=== PATIENT | male | born 1930 | race Caucasian/White ===

== ENCOUNTER → 2016-08-21 | Outpatient (CLI) | payer MEDICARE, BC ==
[2016-05-24 14:00] VITALS: BP 163/93
[~2016-08-21] MED LIST: AMIO200T2 PO; AMLO2.5T PO; ASPI325T11 PO; FERR325T58 PO; HYDR12.58 PO; LOSA25TA4 PO; PANT40TA3 PO; SULF1TAB24 PO
[2016-08-21 15:01] LABS: ALBUMIN 3.8 g/dL (3.4-5.0); DIRECT BILIRUBIN 0.1 mg/dL (0.0-0.2); TOTAL BILIRUBIN 0.3 mg/dL (0.2-1.0); TOTAL PROTEIN 7.5 g/dL (6.4-8.2)
== END | disposition home or self-care (01) ==
LOC: LAB 14:20
PROVIDERS: ATTEND Internal Medicine Cardiovascular Disease
DX: I48.0 Paroxysmal atrial fibrillation (principal)
CPT/HCPCS: 36415; 80076; 84443

== ENCOUNTER → 2016-08-27 | Outpatient (CLI) | payer MEDICARE, BC ==
[2016-05-24 14:00] VITALS: BP 163/93
--- NOTE | 2016-08-29 11:14 | CARD ---
APPROVED REPORT EXAM: Two-dimensional and M-mode echocardiogram with Doppler and color Doppler. Other Information Quality : GoodHR: 63bpm Rhythm : NSR INDICATION Arrhythmia Sick sinus syndrome Surgery/Intervention Pacemaker: 2D DIMENSIONS RVDd2.7 (2.9-3.5cm)Left Atrium(2D)3.4 (1.6-4.0cm) IVSd1.0 (0.7-1.1cm)Aortic Root(2D)3.4 (2.0-3.7cm) LVDd5.4 (3.9-5.9cm)LVOT Diameter2.4 (1.8-2.4cm) PWd1.0 (0.7-1.1cm)LVDs3.2 (2.5-4.0cm) FS (%) 41.4 %SV101.2 ml Aortic Valve AoV Peak Sanya.138.9cm/sAoV VTI25.7cm AO Peak GR.7.7mmHgLVOT Peak Sanya.95.8cm/s AO Mean GR.4mmHgAVA (VMAX)3.11cm2 Mitral Valve MV E Zgtyoicn83.3cm/sMV E Peak Gr.4mmHg MV DECEL [id number] A Kgfqpeob104.4cm/s MV E Mean Gr.1mmHgE/A Ratio0.6 MV A [id number] Pulmonary Valve PV Peak Drdmhwnk27.9cm/s Tricuspid Valve TR P. Usnwmddc476jg/sTR Peak Gr.24mmHg Pulmonary Vein S1 Mnptbtrk03.9cm/sD2 Tfhikuvy32.0cm/s PVa qjvnvjtt33acdm LEFT VENTRICLE The left ventricle is normal size. There is normal left ventricular wall thickness. The left ventricu lar systolic function is normal and the ejection fraction is within normal range. The Ejection Fracti on is 60-65%. Transmitral Doppler flow pattern is Grade I-abnormal relaxation pattern. RIGHT VENTRICLE The right ventricle is normal size. There is normal right ventricular wall thickness. The right ventr icular systolic function is normal. A probable pacemaker lead is noted in the right ventricle. ATRIA The left atrium size is normal. The right atrium size is normal. The interatrial septum is intact wit h no evidence for an atrial septal defect or patent foramen ovale as noted on 2-D or Doppler imaging. AORTIC VALVE The aortic valve is mildly sclerotic. The aortic valve is trileaflet. Doppler and Color Flow revealed trace to mild aortic regurgitation. There is no significant aortic valvular stenosis. MITRAL VALVE Mitral annular calcification is mild. The mitral valve leaflets are thickened. There is no evidence o f mitral valve prolapse. There is no mitral valve stenosis. Doppler and Color Flow revealed trace lety ral valve regurgitation. TRICUSPID VALVE Doppler and Color Flow revealed mild tricuspid regurgitation. The pulmonary artery systolic pressure is estimated at 29 mmHg. PULMONIC VALVE The pulmonic valve is not well visualized. Doppler and Color Flow revealed mild pulmonic valvular reg urgitation. There is no pulmonic valvular stenosis. GREAT VESSELS The aortic root is normal in size. The ascending aorta is mild to moderately dilated. The pulmonary a rtery is normal. The IVC was not visualized due to a suboptimal subcostal window. PERICARDIAL EFFUSION There is no evidence of significant pericardial effusion. Critical Notification Critical Value: No <Conclusion> The left ventricle is normal size. The left ventricular systolic function is normal and the ejection fraction is within normal range. The Ejection Fraction is 60-65%. There is no significant aortic valvular stenosis. Doppler and Color Flow revealed trace to mild aortic regurgitation. Doppler and Color Flow revealed trace mitral valve regurgitation. Doppler and Color Flow revealed mild tricuspid regurgitation. The pulmonary artery systolic pressure is estimated at 29 mmHg. The ascending aorta is mild to moderately dilated.
== END | disposition home or self-care (01) ==
LOC: ECHO 08:49
PROVIDERS: ATTEND Internal Medicine Cardiovascular Disease
DX: I49.5 Sick sinus syndrome (principal)
CPT/HCPCS: 93306

== ENCOUNTER 2016-11-04 20:16 | Inpatient (IN) | payer MEDICARE, BC ==
[~2016-11-04] VITALS: Ht 170.2 cm; Wt 67.4 kg
[~2016-11-04 20:16] MED LIST changes: +CITA20TA5 PO; +MIDO5TAB PO
[2016-11-04] MEDS ORDERED: IV NORMAL SALINE 1000ML BAG 1,000 ML IV ONE ×2 (20:45→22:45)
[2016-11-04 20:56] LABS: BASO % 0 % (0-3); EOS % 0 % (0-3); HEMATOCRIT 47.2 % (39.0-53.0); HEMOGLOBIN 16.2 g/dL (13.0-17.5); LYMPH # 0.6 x10^3/uL (1.0-4.8); LYMPH % 3 % (24-48); MEAN CORPUSCULAR HEMOGLOBIN 33 pg (25-35); MEAN CORPUSCULAR HGB CONC 34 g/dL (31-37); MEAN CORPUSCULAR VOLUME 95 fL (79-100); MONO % 8 % (0-9); NEUT % 88 % (31-73); PLATELET COUNT 341 x10^3/uL (140-400); RED BLOOD COUNT 4.95 x10^6/uL (4.30-5.70); RED CELL DISTRIBUTION WIDTH 13.2 % (11.5-14.5)
[2016-11-04 21:06] LABS: INR 1.2 (0.8-1.1); PROTHROMBIN TIME PATIENT 14.4 SEC (11.7-14.0)
[2016-11-04 21:10] LABS: CALCIUM 10.5 mg/dL (8.5-10.1); POTASSIUM 4.3 mmol/L (3.5-5.1)
[2016-11-04 21:14] LABS: PLT ESTIMATE ADEQUATE (ADEQUATE); TOXIC GRANULATION SLIGHT
[2016-11-04 21:18] LABS: ALBUMIN 3.7 g/dL (3.4-5.0); ALBUMIN/GLOBULIN RATIO 0.7 (1.0-1.7); MAGNESIUM 2.5 mg/dL (1.8-2.4); TOTAL BILIRUBIN 0.9 mg/dL (0.2-1.0); TOTAL PROTEIN 8.7 g/dL (6.4-8.2)
--- NOTE | 2016-11-04 21:19 | RAD ---
CT HEAD WO CONTRAST History: Altered mental status Comparison: October 09, 2016 Technique: Noncontrast [address] images were acquired from the skull base to the vertex. Exposure: One or more of the following individualized dose reduction techniques were utilized for this examination: 1. Automated exposure control 2. Adjustment of the mA and/or kV according to patient size 3. Use of iterative reconstruction technique. Findings: There is some motion degradation. There is prominent hyperdense intraventricular hemorrhage concentrated in the posterior left lateral ventricle and left occipital horn and atrium. Hemorrhage appears to track along the ependymal surface more superiorly and there may be some involvement of the adjacent left parietal parenchyma. There is adjacent low density about the left lateral ventricle likely due to edema. The third ventricle is similar in size. There is again mild lateral ventriculomegaly, size of left lateral ventricle fairly similar. There is no midline shift. Gan-white differentiation of the major vascular territories is grossly preserved. Visualized paranasal sinuses are aerated. Visualized mastoid air cells are grossly reported. No acute calvarial abnormality is identified. Impression: 1. There is prominent acute intraventricular hemorrhage concentrated in the left lateral ventricle, appears to track along the left ependymal surface and there may be some involvement of the adjacent left parietal parenchyma. FOR INTERNAL CODING PURPOSES Critical result: Findings discussed with Dr. Barlow at 11/04/2016 9:10 PM. RESULT CODE: (C) Electronically signed by: Ian Omer MD (11/04/2016 9:15 PM)
[2016-11-04 21:24] LABS: CKMB MASS 5.2 ng/mL (0.0-3.6)
[2016-11-04 21:34] LABS: BILIRUBIN,URINE NEGATIVE (NEG); GLUCOSE,URINE 100 mg/dL (NEG); NITRITE,URINE NEGATIVE (NEG); PROTEIN,URINE 30 mg/dL (NEG-TRACE); UROBILINOGEN,URINE 0.2 mg/dL (0.2 mg/dL)
--- NOTE | 2016-11-04 21:35 | PHYS DOC ---
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 Patient was brought to the emergency department by EMS from the [facility] after nursing staff states the patient was found to have left-sided facial droop and left-sided weakness at 1800. The patient was being treated at their facility for rehabilitation care after having a recent admission to the hospital for treatment of hyponatremia and hyperkalemia. Family arrived to the emergency department shortly after patient's arrival. They state that the patient seemed to display left-sided facial droop and altered mental status starting at 1200 today which is in conflict with the half-way report. They state that the patient seemed to improve when he would be spoken to and would arouse easier upon onset of symptoms, however patient has had increasing lethargy at this time. The patient is able to answer a few questions at this time. Patient denies any localizing complaints but does state that he does not feel well at this time. Patient denies any pain. Patient does state he has generalized weakness but denies any lateralizing symptoms. Review of Systems Review of Systems Constitutional: Generalized weakness, fatigue [] Eyes: Denies change in visual acuity, redness, or eye pain [] HENT: Denies nasal congestion or sore throat [] Respiratory: Denies cough or shortness of breath [] Cardiovascular: Denies chest pain or edema [] GI: Denies abdominal pain, nausea, vomiting, bloody stools or diarrhea [] : Denies dysuria or hematuria [] Musculoskeletal: Denies back pain or joint pain [] Integument: Denies rash or skin lesions [] Neurologic: Denies headache, focal weakness or sensory changes [] Current Medications Current Medications Current Medications Medications (Trade) Dose Ordered Sig/Carrol Start Time Stop Time Status Last Admin Dose Admin Nicardipine HCl 50 mg/Sodium Chloride 270 ml @ 0 mls/hr CONT PRN 11/04/16 22:00 11/04/16 21:48 5 MLS/HR Sodium Chloride 1,000 ml @ 100 mls/hr 1X ONCE 11/04/16 20:45 11/05/16 06:44 11/04/16 21:09 100 MLS/HR Allergies Allergies Allergies Coded Allergies Type Severity Reaction Last Updated Verified aspirin Allergy Intermediate BUFFERIN ONLY 01/04/15 Yes magnesium Allergy Intermediate bufferin aspirin 01/04/15 Yes Physical Exam Physical Exam Constitutional: Lethargic, afebrile, responds to voice and commands. [] HENT: Normocephalic, atraumatic, bilateral external ears normal, oropharynx moist, no oral exudates, nose normal. [] Eyes: PERRLA, EOMI, conjunctiva normal, no discharge. [] Neck: Normal range of motion, no tenderness, supple, no stridor. [] Cardiovascular:Heart rate regular rhythm, no murmur [] Lungs & Thorax: Bilateral breath sounds clear to auscultation [] Abdomen: Bowel sounds normal, soft, no tenderness, no masses, no pulsatile masses. [] Skin: Warm, dry, no erythema, no rash. [] Back: No tenderness, no CVA tenderness. [] Extremities: No tenderness, no cyanosis, no clubbing, ROM intact, no edema. 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 [] Current Patient Data Vital Signs Vital Signs Date Time Temp Pulse Resp B/P (MAP) Pulse Ox O2 Delivery O2 Flow Rate FiO2 11/04/16 21:37 82 182/105 (130) 93 Nasal Cannula 3.0 11/04/16 20:16 98.2 16 98.2 Lab Values Laboratory Tests Test 11/04/16 20:29 11/04/16 20:30 11/04/16 21:20 Glucose (Fingerstick) 143 mg/dL (70-99) H White Blood Count 19.0 x10^3/uL (4.0-11.0) H Red Blood Count 4.95 x10^6/uL (4.30-5.70) Hemoglobin 16.2 g/dL (13.0-17.5) Hematocrit 47.2 % (39.0-53.0) Mean Corpuscular Volume 95 fL (79-100) Mean Corpuscular Hemoglobin 33 pg (25-35) Mean Corpuscular Hemoglobin Concent 34 g/dL (31-37) Red Cell Distribution Width 13.2 % (11.5-14.5) Platelet Count 341 x10^3/uL (140-400) Neutrophils (%) (Auto) 88 % (31-73) H Lymphocytes (%) (Auto) 3 % (24-48) L Monocytes (%) (Auto) 8 % (0-9) Eosinophils (%) (Auto) 0 % (0-3) Basophils (%) (Auto) 0 % (0-3) Neutrophils # (Auto) 16.8 x10^3uL (1.8-7.7) H Lymphocytes # (Auto) 0.6 x10^3/uL (1.0-4.8) L Monocytes # (Auto) 1.6 x10^3/uL (0.0-1.1) H Eosinophils # (Auto) 0.0 x10^3/uL (0.0-0.7) Basophils # (Auto) 0.0 x10^3/uL (0.0-0.2) Segmented Neutrophils % 86 % (35-66) H Band Neutrophils % 2 % (0-9) Lymphocytes % 5 % (24-48) L Monocytes % 7 % (0-10) Toxic Granulation Slight Platelet Estimate Adequate (ADEQUATE) Prothrombin Time 14.4 SEC (11.7-14.0) H Prothrombin Time INR 1.2 (0.8-1.1) H PTT 30 SEC (24-38) Sodium Level 141 mmol/L (136-145) Potassium Level 4.3 mmol/L (3.5-5.1) Chloride Level 98 mmol/L (98-107) Carbon Dioxide Level 34 mmol/L (21-32) H Anion Gap 9 (6-14) Blood Urea Nitrogen 71 mg/dL (8-26) H Creatinine 2.0 mg/dL (0.7-1.3) H Estimated GFR (Cockcroft-Gault) 32.0 BUN/Creatinine Ratio 36 (6-20) H Glucose Level 113 mg/dL (70-99) H Calcium Level 10.5 mg/dL (8.5-10.1) H Magnesium Level 2.5 mg/dL (1.8-2.4) H Total Bilirubin 0.9 mg/dL (0.2-1.0) Aspartate Amino Transferase (AST) 38 U/L (15-37) H Alanine Aminotransferase (ALT) 65 U/L (16-63) H Alkaline Phosphatase 106 U/L (46-116) Ammonia 11 mcmol/L (11-34) Creatine Kinase 287 U/L (39-308) Creatine Kinase MB (Mass) 5.2 ng/mL (0.0-3.6) H Creatine Kinase MB Relative Index 1.8 % (0-4) Troponin I Quantitative 0.063 ng/mL (0.000-0.055) KH-Wty-N-Type Natriuretic Peptide 1096 pg/mL (0-449) H Total Protein 8.7 g/dL (6.4-8.2) H Albumin 3.7 g/dL (3.4-5.0) Albumin/Globulin Ratio 0.7 (1.0-1.7) L Urine Collection Type Unknown Urine Color Yellow Urine Clarity Clear Urine pH 6.0 Urine Specific [place] 1.020 Urine Protein 30 mg/dL (NEG-TRACE) Urine Glucose (UA) 100 mg/dL (NEG) Urine Ketones (Stick) Negative mg/dL (NEG) Urine Blood Trace (NEG) Urine Nitrite Negative (NEG) Urine Bilirubin Negative (NEG) Urine Urobilinogen Dipstick 0.2 mg/dL (0.2 mg/dL) Urine Leukocyte Esterase Negative (NEG) Urine RBC Rare /HPF (0-2) Urine WBC 0 /HPF (0-4) Urine Transitional Epithelial Cells Occ /LPF Urine Bacteria 0 /HPF (0-FEW) Urine Hyaline Casts Few /HPF Urine Mucus Slight /LPF Urine Opiates Screen Neg (NEG) Urine Methadone Screen Neg (NEG) Urine Barbiturates Neg (NEG) Urine Phencyclidine Screen Neg (NEG) Urine Amphetamine/Methamphetamine Neg (NEG) Urine Benzodiazepines Screen Neg (NEG) Urine Cocaine Screen Neg (NEG) Urine Cannabinoids Screen Neg (NEG) Urine Ethyl Alcohol Neg (NEG) Laboratory Tests 11/04/16 20:30 Laboratory Tests 11/04/16 20:30 EKG EKG Interpreted by me: Heart rate 84, sinus rhythm, left axis deviation, no acute ST /T-wave abnormalities present [] Radiology/Procedures Radiology/Procedures [facility] [address] [place] [address] IMAGING REPORT Signed PATIENT: LANI PEDROZA ACCOUNT: [id number] : 1930 LOCATION: ER AGE: 85 SEX: M EXAM STATUS: REG ER ORD. PHYSICIAN: JOHANNE KELLER MD REASON: altered mental status PROCEDURE: CT HEAD WO CONTRAST CT HEAD WO CONTRAST History: Altered mental status Comparison: October 09, 2016 Technique: Noncontrast [address] images were acquired from the skull base to the vertex. Exposure: One or more of the following individualized dose reduction techniques were utilized for this examination: 1. Automated exposure control 2. Adjustment of the mA and/or kV according to patient size 3. Use of iterative reconstruction technique. Findings: There is some motion degradation. There is prominent hyperdense intraventricular hemorrhage concentrated in the posterior left lateral ventricle and left occipital horn and atrium. Hemorrhage appears to track along the ependymal surface more superiorly and there may be some involvement of the adjacent left parietal parenchyma. There is adjacent low density about the left lateral ventricle likely due to edema. The third ventricle is similar in size. There is again mild lateral ventriculomegaly, size of left lateral ventricle fairly similar. There is no midline shift. Gan-white differentiation of the major vascular territories is grossly preserved. Visualized paranasal sinuses are aerated. Visualized mastoid air cells are grossly reported. No acute calvarial abnormality is identified. Impression: 1. There is prominent acute intraventricular hemorrhage concentrated in the left lateral ventricle, appears to track along the left ependymal surface and there may be some involvement of the adjacent left parietal parenchyma. FOR INTERNAL CODING PURPOSES Critical result: Findings discussed with Dr. Keller at 11/04/2016 9:10 PM. RESULT CODE: (C) Electronically signed by: Monica Griffin MD (11/04/2016 9:15 PM) DICTATED and SIGNED BY: MONICA GRIFFIN MD DATE: 11/04/162106 CC: MONICA ABDUL MD; JOHANNE KELLER MD ~ [] Course & Med Decision Making Course & Med Decision Making Pertinent Labs and Imaging studies reviewed. (See chart for details) Patient's initial NIH score was 6 when performed by nursing staff which noted right-sided weakness. On my evaluation, the patient did not display lateralizing symptoms but symmetrically depressed strength. The patient's CT scan revealed evidence of acute intracranial bleeding in the left hemisphere. The radiologist confirmed this at 2109. I consulted neurosurgery and spoke with JULIAN Rosen for Dr. Blackmon, at 2118. After reviewing the CT imaging, Dr. Blackmon called back at 2133. After discussing the case he recommended supportive care with ICU admission and repeat head CT tomorrow morning. Due to elevated blood pressure of 180 to 190s systolic, the patient was initiated on low-dose Cardene therapy. Due to a drop in blood pressure 110 systolic this was discontinued and patient was continued on IV fluids. The patient was admitted to Dr. Abdul. I also spoke with Dr. Akers who accepted care patient in hospital. Patient's family was informed of all findings and plan of care and they're in agreement at this time. Critical care time excluding procedures: 55 minutes Dragon Disclaimer Dragon Disclaimer This electronic medical record was generated, in whole or in part, using a voice recognition dictation system. Departure Departure Impression: Primary Impression: Hemorrhagic cerebrovascular accident (CVA) Additional Impressions: Acute renal failure Elevated troponin Disposition: ADMITTED INPATIENT Admitting Physician: Monica Abdul Condition: CRITICAL Referrals: MONICA ABDUL MD (PCP) Problem Qualifiers Additional Impressions: Acute renal failure Acute renal failure type: unspecified Qualified Codes: N17.9 - Acute kidney failure, unspecified JOHANNE KELLER MD November 04, 2016 21:35
[2016-11-04 21:40] LABS: BACTERIA,URINE 0 /HPF (0-FEW); RBC,URINE RARE /HPF (0-2); WBC,URINE 0 /HPF (0-4)
[2016-11-04 21:41] LABS: BARBITURATES NEG (NEG); BENZODIAZEPINES NEG (NEG); CANNABINOIDS NEG (NEG); COCAINE NEG (NEG); METHADONE NEG (NEG); OPIATES NEG (NEG); PHENCYCLIDINE NEG (NEG)
[2016-11-04] MEDS ORDERED: ONDANSETRON PF 4 MG/2 ML VIAL. IV PRN (23:00)
[2016-11-04] MEDS ORDERED: ACETAMINOPHEN 325 MG TABLET. PO PRN (23:00)
[2016-11-04 23:30] VITALS: BP 158/94
[2016-11-04 23:45] VITALS: BP 128/87
[2016-11-05] VITALS (22 sets, daily range): BP systolic 63–150; BP diastolic 48–104
[2016-11-05] MEDS ORDERED: MAGN2400 PO (00:02)
[2016-11-05] MEDS ORDERED: NA P133E2 RC (00:02)
[2016-11-05] MEDS ORDERED: ALPR0.25 PO (00:02)
[2016-11-05] MEDS ORDERED: POTA20TA4 PO (00:02)
[2016-11-05] MEDS ORDERED: BISA10SU2 RC (00:02)
[2016-11-05] MEDS ORDERED: POLY17PO29 PO (00:02)
[2016-11-05] MEDS ORDERED: SIMV20TA3 PO (00:02)
[2016-11-05] MEDS ORDERED: DEME300T PO (00:02)
[2016-11-05] MEDS ORDERED: ONDA4TAB12 PO (00:02)
--- NOTE | 2016-11-05 03:42 | ACF ---
Admission Forms Criteria STROKE: HEMORRHAGIC Clinical Indications for Admission to Inpatient Care (Place 'X' for any and all applicable criteria): Admission is indicated for ANY ONE of the following(1)(2)(3)(4): [X ]I. Acute hemorrhagic (eg, intracerebral) stroke Extended stay beyond goal length of stay may be needed for(1)(2)(6) [ ]a) Surgical intervention (9) [ ]b) Major deficit [ ]c) Increased intracranial pressure [ ]d) Hydrocephalus [ ]e) Seizures [ ]f) Venous thromboembolism [ ]g) Severe electrolyte abnormality (eg, hypernatremia, hyponatremia) [ ]h) Hospital-acquired infection (eg, urinary tract infection, pneumonia) [ ]i) Comorbidities (heart failure, renal failure) The original [facility] content created by [facility] [employer] has been revised. The portions of the content which have been revised are identified through the use of italic text or in bold, and [facility] has neither reviewed nor approved the modified material. All other unmodified content is copyright [facility]. Please see references footnoted in the original [facility] [employer] edition 2016 Admission Criteria Met?: Yes SIRI REMY November 05, 2016 03:42
[2016-11-05 04:54] LABS: BASO % 0 % (0-3); EOS % 0 % (0-3); HEMATOCRIT 40.4 % (39.0-53.0); HEMOGLOBIN 13.7 g/dL (13.0-17.5); LYMPH # 0.7 x10^3/uL (1.0-4.8); LYMPH % 4 % (24-48); MEAN CORPUSCULAR HEMOGLOBIN 33 pg (25-35); MEAN CORPUSCULAR HGB CONC 34 g/dL (31-37); MEAN CORPUSCULAR VOLUME 96 fL (79-100); MONO % 12 % (0-9); NEUT % 84 % (31-73); PLATELET COUNT 262 x10^3/uL (140-400); RED BLOOD COUNT 4.22 x10^6/uL (4.30-5.70); WHITE BLOOD COUNT 17.2 x10^3/uL (4.0-11.0)
--- NOTE | 2016-11-05 06:17 | EKG ---
[facility] [address] [place] [address] Test Date: 2016-11-04 Test Time: 20:24:06 Pat Name: LANI PEDROZA Department: Room: Gender: M Qual Field Manager: : 1930 Requested By: JOHANNE KELLER Order Number: [id number] Reading MD: Measurements Intervals [place] Rate: 84 P: -19 AK: 174 QRS: -59 QRSD: 126 T: 79 QT: 378 QTc: 450 Interpretive Statements SINUS RHYTHM ABNORMAL LEFT AXIS DEVIATION NON SPECIFIC INTRAVENTRICULAR BLOCK QRS(T) CONTOUR ABNORMALITY CONSISTENT WITH SEPTAL INFARCT PROBABLY OLD RI6.01 Unconfirmed report No previous ECG available for comparison
[2016-11-05 07:01] LABS: CALCIUM 8.8 mg/dL (8.5-10.1); CREATININE 1.2 mg/dL (0.7-1.3); GFR 57.7; POTASSIUM 3.3 mmol/L (3.5-5.1)
[2016-11-05] MEDS: IV NORMAL SALINE 1000ML BAG 1,000 ML IV SCH ×2 (07:37→15:45)
[2016-11-05 07:43] LABS: PHOSPHORUS 4.4 mg/dL (2.6-4.7)
[2016-11-05] MEDS: POTASSIUM CHLORIDE 10MEQ 100 ML IV SCH ×4 (07:43→15:47)
--- NOTE | 2016-11-05 07:48 | RAD ---
Portable chest, 11/04/2016: History: Altered mental status Comparison is made to a study from 10/09/2016. A left-sided transvenous pacemaker remains in place with 2 leads extending into the right heart. The heart is at the upper limits of normal in size. The depth of inspiration is suboptimal. There are moderate bibasilar streaky opacities compatible with atelectasis and/or scarring. The upper lung virgen are clear. There is no evidence of pleural fluid. IMPRESSION: Suboptimal inspiration with moderate bibasilar linear atelectasis and/or scarring.
--- NOTE | 2016-11-05 09:28 | RAD ---
Indication follow-up hemorrhage. Noncontrast images of the head were obtained and are compared to an exam one day earlier. Known left intraventricular hemorrhage persists and appears unchanged. There is a small amount of hemorrhage in the dependent portion of the right lateral ventricle also unchanged. There may be a parenchymal component in the left parietal lobe also appearing unchanged. A new finding is not seen. Ventricles and sulci appear unchanged. There is no hydrocephalus. IMPRESSION: Known intraventricular hemorrhage persists. There has not been a significant change in the appearance of the head compared to yesterday's exam PQRS Compliance Statement: One or more of the following individualized dose reduction techniques were utilized for this examination: 1. Automated exposure control 2. Adjustment of the mA and/or kV according to patient size 3. Use of iterative reconstruction technique
[2016-11-05] MEDS ORDERED: LACOSAMIDE 100 MG in IV NORMAL SALINE 50ML 50 ML IV SCH (12:00)
--- NOTE | 2016-11-05 13:03 | PDOC2 ---
NEUROLOGY CONSULT Date of Admission Date of Admission DATE: 11/05/16 TIME: 12:48 Reason for Consult Reason for Consult: IMPRESSION: Acute IVH. Acute left parietal lobe parenchymal hemorrhage. Metabolic encephalopathy. Respiratory distress. HTN HLD Depression Pacemaker placement. Other medical diseases. RECOMMENDATIONS/PLAN: BP control. Vimpat 100 mg IV q12h Repeat HCT w/o contrast if condition worse. Treat medical diseases. Discussed with his daughter at bedside in ICU. HISTORY OF THE PRESENT ILLNESS: 85-y-old male patient with above medical diseases was found by staff in [facility] where he has been staying to have left side weakness , left side of face drooping, and MS changes. He was brought to the ER of [facility] and was found to have IVH and IPH. He was not considered a surgery. Neurology was called for consultation. Per Hx, his recently and he was very depressed under emotional stress. PAST MEDICAL HISTORY: Please see above. PAST SURGERY HISTORY: Pacemaker Placement Tonsillectomy Hip surgery ALLERGY: Reviewed. MEDICATIONS: Refer to [facility] FAMILY HISTORY: Non contributory. SOCIAL HISTORY: Lives in [facility] recently. Denies current smoking, drinking, and illicit drug use. REVIEW OF SYSTEMS: Constitutional: No malnutrition, weight loss, cachexia. Head: No recent traumatic brain or head injury. Skin: No edema, or rash. Ear: No infection, tinnitus. Eyes: No vision loss or color blindness. Nose: No bleeding or purulent discharges. Hearing: Mild hearing decrease. Cardiac: Pacemaker Placement, HTN, HLD. Pulmonary: No COPD. GI: No GI ulcer, GI bleeding. Urinary/genital: No dysuria, urinary retention. Endocrinologic: No cousin face, craniofacial dysmorphism, polydactyly Skeletomuscular: No muscular atrophy, deformity. Neurological: see HP. Psychiatric: Denies drug use/abuse. Otherwise, not [id number] review of systems. PHYSICAL EXAMINATION: General appearance is in acute distress. HEENT: Normocephalic and nontraumatic. Eyes, nose, ears, and throat are unremarkable. Neck is supple. No lymphadenopathy. No bruits are heard over the carotid artery. No crepitus. Cardiovascular: S1, S2, regular rate and rhythm. Pulmonary: Clear to auscultation bilaterally. Abdomen: Bowel sounds are positive. Extremities: No rash, lesions, or edema. No restriction of range of motion, but left side is weak. NEUROLOGICAL EXAMINATION: Drowsiness. Not oriented to time, but knows place and person. PERRL. EOMI. CN: Mild asymmetrical feature. Muscle tone: Decreased within normal. Muscle strength: 4- DTR: 2 Plantar reflex: Neutral response bilaterally Gait: Unable to walk. Sensory exam: not able to answer question accurately. No acute cerebellar signs elicited. Current Medications Current Medications Current Medications Sodium Chloride 1,000 ml @ 100 mls/hr 1X ONCE IV Last administered on 21:09; Start 11/04/16 at 20:45; Stop 11/05/16 at 06:44; Status DC Nicardipine HCl 50 mg/Sodium Chloride 270 ml @ 0 mls/hr CONT PRN IV SEE I/O RECORD Last administered on 11/04/16 21:48; Start 11/04/16 at 22:00 Sodium Chloride 1,000 ml @ 1,000 mls/hr 1X ONCE IV Last administered on 22:41; Start 11/04/16 at 22:45; Stop 11/04/16 at 23:44; Status DC Ondansetron HCl (Zofran) 4 mg PRN Q8HRS PRN IV NAUSEA/VOMITING; Start 11/04/16 at 23:00; Stop 11/05/16 at 22:59 Sodium Chloride 1,000 ml @ 100 mls/hr Q10H IV Last administered on 11/05/16 07:37; Start 11/04/16 at 22:45; Stop 11/05/16 at 22:44 Acetaminophen (Tylenol) 650 mg PRN Q4HRS PRN PO FEVER; Start 11/04/16 at 23:00 ; Stop 11/05/16 at 22:59 Potassium Chloride 100 ml @ 100 mls/hr Q1H IV Last administered on 11/05/16 07:43; Start 11/05/16 at 08:00; Stop 11/05/16 at 11:59; Status DC Lacosamide 100 mg/ Sodium Chloride 60 ml @ 120 mls/hr BID IV ; Start 11/05/16 at 12:00 Active Scripts Active Reported Klor-Con M20 (Potassium Chloride) 20 Meq Tab.er.prt 1 Tab PO DAILYWSUP Fleet Enema (Na Phos,M-B/Na Phos,Di-Ba) 133 Ml Enema 133 Ml RC DAILY PRN Bisacodyl 10 Mg Supp.rect 10 Mg RC PRN DAILY PRN Milk Of Magnesia (Magnesium Hydroxide) 2,400 Mg/10 Ml Oral.susp 2,400 Mg PO DAILY PRN Simvastatin 20 Mg Tablet 1 Tab PO QHS Demeclocycline Hcl 300 Mg Tablet 300 Mg PO BID Miralax (Polyethylene Glycol 3350) 17 Gm Powd.pack 1 Packet PO DAILY Xanax (Alprazolam) 0.25 Mg Tablet 1 Tab PO Q8HRS PRN Ondansetron Odt (Ondansetron) 4 Mg Tab.rapdis 1 Tab PO PRN Q4HRS PRN Citalopram Hbr (Citalopram Hydrobromide) 20 Mg Tablet 0.5 Tab PO DAILY Midodrine Hcl 5 Mg Tablet 5 Mg PO BID Aspirin Ec (Aspirin) 325 Mg Tablet. 1 Tab PO DAILY next dose due tomorrow, January 06 at 9:00 AM Allergies Allergies: Coded Allergies: aspirin (Verified Allergy, Intermediate, BUFFERIN ONLY, 01/04/15) can take regular aspirin magnesium (Verified Allergy, Intermediate, bufferin aspirin, 01/04/15) Vitals VITALS Vital Signs Date Time Temp Pulse Resp B/P (MAP) Pulse Ox O2 Delivery O2 Flow Rate FiO2 11/05/16 06:00 86 22 148/94 (112) 96 Nasal Cannula 4.0 11/05/16 04:00 97.4 97.4 Labs Labs Laboratory Tests Test 11/04/16 20:29 11/04/16 20:30 11/04/16 21:20 11/05/16 04:25 Glucose (Fingerstick) 143 mg/dL (70-99) White Blood Count 19.0 x10^3/uL (4.0-11.0) 17.2 x10^3/uL (4.0-11.0) Red Blood Count 4.95 x10^6/uL (4.30-5.70) 4.22 x10^6/uL (4.30-5.70) Hemoglobin 16.2 g/dL (13.0-17.5) 13.7 g/dL (13.0-17.5) Hematocrit 47.2 % (39.0-53.0) 40.4 % (39.0-53.0) Mean Corpuscular Volume 95 fL (79-100) 96 fL (79-100) Mean Corpuscular Hemoglobin 33 pg (25-35) 33 pg (25-35) Mean Corpuscular Hemoglobin Concent 34 g/dL (31-37) 34 g/dL (31-37) Red Cell Distribution Width 13.2 % (11.5-14.5) 13.0 % (11.5-14.5) Platelet Count 341 x10^3/uL (140-400) 262 x10^3/uL (140-400) Neutrophils (%) (Auto) 88 % (31-73) 84 % (31-73) Lymphocytes (%) (Auto) 3 % (24-48) 4 % (24-48) Monocytes (%) (Auto) 8 % (0-9) 12 % (0-9) Eosinophils (%) (Auto) 0 % (0-3) 0 % (0-3) Basophils (%) (Auto) 0 % (0-3) 0 % (0-3) Neutrophils # (Auto) 16.8 x10^3uL (1.8-7.7) 14.5 x10^3uL (1.8-7.7) Lymphocytes # (Auto) 0.6 x10^3/uL (1.0-4.8) 0.7 x10^3/uL (1.0-4.8) Monocytes # (Auto) 1.6 x10^3/uL (0.0-1.1) 2.0 x10^3/uL (0.0-1.1) Eosinophils # (Auto) 0.0 x10^3/uL (0.0-0.7) 0.0 x10^3/uL (0.0-0.7) Basophils # (Auto) 0.0 x10^3/uL (0.0-0.2) 0.0 x10^3/uL (0.0-0.2) Segmented Neutrophils % 86 % (35-66) Band Neutrophils % 2 % (0-9) Lymphocytes % 5 % (24-48) Monocytes % 7 % (0-10) Toxic Granulation Slight Platelet Estimate Adequate (ADEQUATE) Prothrombin Time 14.4 SEC (11.7-14.0) Prothromb Time International Ratio 1.2 (0.8-1.1) Activated Partial Thromboplast Time 30 SEC (24-38) Sodium Level 141 mmol/L (136-145) 143 mmol/L (136-145) Potassium Level 4.3 mmol/L (3.5-5.1) 3.3 mmol/L (3.5-5.1) Chloride Level 98 mmol/L (98-107) 103 mmol/L (98-107) Carbon Dioxide Level 34 mmol/L (21-32) 31 mmol/L (21-32) Anion Gap 9 (6-14) 9 (6-14) Blood Urea Nitrogen 71 mg/dL (8-26) 49 mg/dL (8-26) Creatinine 2.0 mg/dL (0.7-1.3) 1.2 mg/dL (0.7-1.3) Estimated GFR (Cockcroft-Gault) 32.0 57.7 BUN/Creatinine Ratio 36 (6-20) Glucose Level 113 mg/dL (70-99) 107 mg/dL (70-99) Calcium Level 10.5 mg/dL (8.5-10.1) 8.8 mg/dL (8.5-10.1) Magnesium Level 2.5 mg/dL (1.8-2.4) 2.0 mg/dL (1.8-2.4) Total Bilirubin 0.9 mg/dL (0.2-1.0) Aspartate Amino Transf (AST/SGOT) 38 U/L (15-37) Alanine Aminotransferase (ALT/SGPT) 65 U/L (16-63) Alkaline Phosphatase 106 U/L (46-116) Ammonia 11 mcmol/L (11-34) Creatine Kinase 287 U/L (39-308) Creatine Kinase MB (Mass) 5.2 ng/mL (0.0-3.6) Creatine Kinase MB Relative Index 1.8 % (0-4) Troponin I Quantitative 0.063 ng/mL (0.000-0.055) 0.050 ng/mL (0.000-0.055) EL-Yru-F-Type Natriuretic Peptide 1096 pg/mL (0-449) Total Protein 8.7 g/dL (6.4-8.2) Albumin 3.7 g/dL (3.4-5.0) Albumin/Globulin Ratio 0.7 (1.0-1.7) Urine Collection Type Unknown Urine Color Yellow Urine Clarity Clear Urine pH 6.0 Urine Specific [place] 1.020 Urine Protein 30 mg/dL (NEG-TRACE) Urine Glucose (UA) 100 mg/dL (NEG) Urine Ketones (Stick) Negative mg/dL (NEG) Urine Blood Trace (NEG) Urine Nitrite Negative (NEG) Urine Bilirubin Negative (NEG) Urine Urobilinogen Dipstick 0.2 mg/dL (0.2 mg/dL) Urine Leukocyte Esterase Negative (NEG) Urine RBC Rare /HPF (0-2) Urine WBC 0 /HPF (0-4) Urine Transitional Epithelial Cells Occ /LPF Urine Bacteria 0 /HPF (0-FEW) Urine Hyaline Casts Few /HPF Urine Mucus Slight /LPF Urine Opiates Screen Neg (NEG) Urine Methadone Screen Neg (NEG) Urine Barbiturates Neg (NEG) Urine Phencyclidine Screen Neg (NEG) Urine Amphetamine/Methamphetamine Neg (NEG) Urine Benzodiazepines Screen Neg (NEG) Urine Cocaine Screen Neg (NEG) Urine Cannabinoids Screen Neg (NEG) Urine Ethyl Alcohol Neg (NEG) Phosphorus Level 4.4 mg/dL (2.6-4.7) Test 11/05/16 10:35 Troponin I Quantitative 0.055 ng/mL (0.000-0.055) Laboratory Tests Test 11/04/16 20:29 11/04/16 20:30 11/04/16 21:20 11/05/16 04:25 Glucose (Fingerstick) 143 mg/dL (70-99) White Blood Count 19.0 x10^3/uL (4.0-11.0) 17.2 x10^3/uL (4.0-11.0) Red Blood Count 4.95 x10^6/uL (4.30-5.70) 4.22 x10^6/uL (4.30-5.70) Hemoglobin 16.2 g/dL (13.0-17.5) 13.7 g/dL (13.0-17.5) Hematocrit 47.2 % (39.0-53.0) 40.4 % (39.0-53.0) Mean Corpuscular Volume 95 fL (79-100) 96 fL (79-100) Mean Corpuscular Hemoglobin 33 pg (25-35) 33 pg (25-35) Mean Corpuscular Hemoglobin Concent 34 g/dL (31-37) 34 g/dL (31-37) Red Cell Distribution Width 13.2 % (11.5-14.5) 13.0 % (11.5-14.5) Platelet Count 341 x10^3/uL (140-400) 262 x10^3/uL (140-400) Neutrophils (%) (Auto) 88 % (31-73) 84 % (31-73) Lymphocytes (%) (Auto) 3 % (24-48) 4 % (24-48) Monocytes (%) (Auto) 8 % (0-9) 12 % (0-9) Eosinophils (%) (Auto) 0 % (0-3) 0 % (0-3) Basophils (%) (Auto) 0 % (0-3) 0 % (0-3) Neutrophils # (Auto) 16.8 x10^3uL (1.8-7.7) 14.5 x10^3uL (1.8-7.7) Lymphocytes # (Auto) 0.6 x10^3/uL (1.0-4.8) 0.7 x10^3/uL (1.0-4.8) Monocytes # (Auto) 1.6 x10^3/uL (0.0-1.1) 2.0 x10^3/uL (0.0-1.1) Eosinophils # (Auto) 0.0 x10^3/uL (0.0-0.7) 0.0 x10^3/uL (0.0-0.7) Basophils # (Auto) 0.0 x10^3/uL (0.0-0.2) 0.0 x10^3/uL (0.0-0.2) Segmented Neutrophils % 86 % (35-66) Band Neutrophils % 2 % (0-9) Lymphocytes % 5 % (24-48) Monocytes % 7 % (0-10) Toxic Granulation Slight Platelet Estimate Adequate (ADEQUATE) Prothrombin Time 14.4 SEC (11.7-14.0) Prothromb Time International Ratio 1.2 (0.8-1.1) Activated Partial Thromboplast Time 30 SEC (24-38) Sodium Level 141 mmol/L (136-145) 143 mmol/L (136-145) Potassium Level 4.3 mmol/L (3.5-5.1) 3.3 mmol/L (3.5-5.1) Chloride Level 98 mmol/L (98-107) 103 mmol/L (98-107) Carbon Dioxide Level 34 mmol/L (21-32) 31 mmol/L (21-32) Anion Gap 9 (6-14) 9 (6-14) Blood Urea Nitrogen 71 mg/dL (8-26) 49 mg/dL (8-26) Creatinine 2.0 mg/dL (0.7-1.3) 1.2 mg/dL (0.7-1.3) Estimated GFR (Cockcroft-Gault) 32.0 57.7 BUN/Creatinine Ratio 36 (6-20) Glucose Level 113 mg/dL (70-99) 107 mg/dL (70-99) Calcium Level 10.5 mg/dL (8.5-10.1) 8.8 mg/dL (8.5-10.1) Magnesium Level 2.5 mg/dL (1.8-2.4) 2.0 mg/dL (1.8-2.4) Total Bilirubin 0.9 mg/dL (0.2-1.0) Aspartate Amino Transf (AST/SGOT) 38 U/L (15-37) Alanine Aminotransferase (ALT/SGPT) 65 U/L (16-63) Alkaline Phosphatase 106 U/L (46-116) Ammonia 11 mcmol/L (11-34) Creatine Kinase 287 U/L (39-308) Creatine Kinase MB (Mass) 5.2 ng/mL (0.0-3.6) Creatine Kinase MB Relative Index 1.8 % (0-4) Troponin I Quantitative 0.063 ng/mL (0.000-0.055) 0.050 ng/mL (0.000-0.055) YL-[id number]-J-Type Natriuretic Peptide 1096 pg/mL (0-449) Total Protein 8.7 g/dL (6.4-8.2) Albumin 3.7 g/dL (3.4-5.0) Albumin/Globulin Ratio 0.7 (1.0-1.7) Urine Collection Type Unknown Urine Color Yellow Urine Clarity Clear Urine pH 6.0 Urine Specific [place] 1.020 Urine Protein 30 mg/dL (NEG-TRACE) Urine Glucose (UA) 100 mg/dL (NEG) Urine Ketones (Stick) Negative mg/dL (NEG) Urine Blood Trace (NEG) Urine Nitrite Negative (NEG) Urine Bilirubin Negative (NEG) Urine Urobilinogen Dipstick 0.2 mg/dL (0.2 mg/dL) Urine Leukocyte Esterase Negative (NEG) Urine RBC Rare /HPF (0-2) Urine WBC 0 /HPF (0-4) Urine Transitional Epithelial Cells Occ /LPF Urine Bacteria 0 /HPF (0-FEW) Urine Hyaline Casts Few /HPF Urine Mucus Slight /LPF Urine Opiates Screen Neg (NEG) Urine Methadone Screen Neg (NEG) Urine Barbiturates Neg (NEG) Urine Phencyclidine Screen Neg (NEG) Urine Amphetamine/Methamphetamine Neg (NEG) Urine Benzodiazepines Screen Neg (NEG) Urine Cocaine Screen Neg (NEG) Urine Cannabinoids Screen Neg (NEG) Urine Ethyl Alcohol Neg (NEG) Phosphorus Level 4.4 mg/dL (2.6-4.7) Test 11/05/16 10:35 Troponin I Quantitative 0.055 ng/mL (0.000-0.055) AAYUSH STEINER MD November 05, 2016 13:03
--- NOTE | 2016-11-05 20:48 | PDOC ---
GENERAL General: see dictated H&P. Problems: VITAL SIGNS Vital Signs: Vital Signs Date Time Temp Pulse Resp B/P (MAP) Pulse Ox O2 Delivery O2 Flow Rate FiO2 11/05/16 18:00 86 22 107/85 (92) 96 Nasal Cannula 4.0 11/05/16 16:00 97.6 97.6 I & O I & O Intake and Output 11/05/16 07:00 Intake Total 1672 ml Output Total 1765 ml Balance -93 ml Intake IV Total 1672 ml Output Urine Total 1765 ml ALLERGIES Allergies: Allergies Coded Allergies Type Severity Reaction Last Updated Verified aspirin Allergy Intermediate BUFFERIN ONLY 01/04/15 Yes magnesium Allergy Intermediate bufferin aspirin 01/04/15 Yes MEDS Medications: Current Medications Medications (Trade) Dose Ordered Sig/Carrol Start Time Stop Time Status Last Admin Dose Admin Acetaminophen (Tylenol) 650 mg PRN Q4HRS PRN 11/04/16 23:00 11/05/16 22:59 Lacosamide 100 mg/ Sodium Chloride 60 ml @ 120 mls/hr BID 11/05/16 12:00 11/05/16 15:45 120 MLS/HR Nicardipine HCl 50 mg/Sodium Chloride 270 ml @ 0 mls/hr CONT PRN 11/04/16 22:00 11/04/16 21:48 5 MLS/HR Ondansetron HCl (Zofran) 4 mg PRN Q8HRS PRN 11/04/16 23:00 11/05/16 22:59 Potassium Chloride 100 ml @ 100 mls/hr Q1H 11/05/16 08:00 11/05/16 11:59 DC 11/05/16 15:47 100 MLS/HR Sodium Chloride 1,000 ml @ 100 mls/hr Q10H 11/04/16 22:45 11/05/16 22:44 11/05/16 15:45 100 MLS/HR LAB Lab: Laboratory Tests Test 11/04/16 21:20 11/04/16 23:10 11/05/16 04:25 11/05/16 10:35 Urine Collection Type Unknown Urine Color Yellow Urine Clarity Clear Urine pH 6.0 Urine Specific [place] 1.020 Urine Protein 30 mg/dL (NEG-TRACE) Urine Glucose (UA) 100 mg/dL (NEG) Urine Ketones (Stick) Negative mg/dL (NEG) Urine Blood Trace (NEG) Urine Nitrite Negative (NEG) Urine Bilirubin Negative (NEG) Urine Urobilinogen Dipstick 0.2 mg/dL (0.2 mg/dL) Urine Leukocyte Esterase Negative (NEG) Urine RBC Rare /HPF (0-2) Urine WBC 0 /HPF (0-4) Urine Transitional Epithelial Cells Occ /LPF Urine Bacteria 0 /HPF (0-FEW) Urine Hyaline Casts Few /HPF Urine Mucus Slight /LPF Urine Opiates Screen Neg (NEG) Urine Methadone Screen Neg (NEG) Urine Barbiturates Neg (NEG) Urine Phencyclidine Screen Neg (NEG) Urine Amphetamine/Methamphetamine Neg (NEG) Urine Benzodiazepines Screen Neg (NEG) Urine Cocaine Screen Neg (NEG) Urine Cannabinoids Screen Neg (NEG) Urine Ethyl Alcohol Neg (NEG) Nasal Screen MRSA (PCR) Negative (Negative) White Blood Count 17.2 x10^3/uL (4.0-11.0) Red Blood Count 4.22 x10^6/uL (4.30-5.70) Hemoglobin 13.7 g/dL (13.0-17.5) Hematocrit 40.4 % (39.0-53.0) Mean Corpuscular Volume 96 fL (79-100) Mean Corpuscular Hemoglobin 33 pg (25-35) Mean Corpuscular Hemoglobin Concent 34 g/dL (31-37) Red Cell Distribution Width 13.0 % (11.5-14.5) Platelet Count 262 x10^3/uL (140-400) Neutrophils (%) (Auto) 84 % (31-73) Lymphocytes (%) (Auto) 4 % (24-48) Monocytes (%) (Auto) 12 % (0-9) Eosinophils (%) (Auto) 0 % (0-3) Basophils (%) (Auto) 0 % (0-3) Neutrophils # (Auto) 14.5 x10^3uL (1.8-7.7) Lymphocytes # (Auto) 0.7 x10^3/uL (1.0-4.8) Monocytes # (Auto) 2.0 x10^3/uL (0.0-1.1) Eosinophils # (Auto) 0.0 x10^3/uL (0.0-0.7) Basophils # (Auto) 0.0 x10^3/uL (0.0-0.2) Sodium Level 143 mmol/L (136-145) Potassium Level 3.3 mmol/L (3.5-5.1) Chloride Level 103 mmol/L (98-107) Carbon Dioxide Level 31 mmol/L (21-32) Anion Gap 9 (6-14) Blood Urea Nitrogen 49 mg/dL (8-26) Creatinine 1.2 mg/dL (0.7-1.3) Estimated GFR (Cockcroft-Gault) 57.7 Glucose Level 107 mg/dL (70-99) Calcium Level 8.8 mg/dL (8.5-10.1) Phosphorus Level 4.4 mg/dL (2.6-4.7) Magnesium Level 2.0 mg/dL (1.8-2.4) Troponin I Quantitative 0.050 ng/mL (0.000-0.055) 0.055 ng/mL (0.000-0.055) MONICA MENDEZ MD November 05, 2016 20:48
--- NOTE | 2016-11-06 05:12 | HP ---
ADMIT DATE: CHIEF COMPLAINT AND HISTORY OF PRESENT ILLNESS: This 85-year-old white male is well known to me from followup in the office. The patient has been in rehab and long term for the last couple of weeks after hospitalization. He had change in status on the evening of the admission with his head leaning to the left according to the nurse, family was concerned, and he was brought to the Emergency Room where he was found to have an intracranial hemorrhage and admitted through the Emergency Room. PAST MEDICAL HISTORY: Remarkable for orthostasis, anxiety, depression, hyperlipidemia, hypertension, heart disease, and transient global amnesia. PAST SURGICAL HISTORY: He has had a prior hip replacement, pacemaker placement, tonsillectomy, and bilateral hip replacements. MEDICATIONS: All meds were brought with the patient, listed on the computer and have been addressed. ALLERGIES: ALLERGIC TO ASPIRIN. SOCIAL HISTORY: He was recently ____ over the last couple of weeks, nonsmoker, nondrinker, retired, has very supportive family and does not use drugs. FAMILY HISTORY: Noncontributory. REVIEW OF SYSTEMS: Unobtainable other than mentioned above. PHYSICAL EXAMINATION: GENERAL: He is a well-developed, well-nourished white male lethargic, but responds to voice and commands. The speech is obviously dysphasic when he is talking to me compared to his normal. VITAL SIGNS: Stable. He is afebrile. Blood pressure has trended a little bit high. P.r.n. Cardene has been used. HEAD, EYES, EARS, NOSE AND THROAT: Unremarkable. NECK: Supple without bruit, thyromegaly. CHEST: Clear to auscultation and percussion. HEART: Regular rate and rhythm without S3, S4 or murmur. ABDOMEN: Soft, nontender, without hepatosplenomegaly or mass. EXTREMITIES: Without cyanosis, clubbing, or edema. NEUROLOGIC: Remarkable for the dysphasic speech, he has alternating weakness right and the left according to the nursing, but has no weakness at the time of my examination. CT head does show an intracranial hemorrhage. Laboratory shows a white count of 19,000 with an elevated neutrophil count. His INR is 1.2. BUN is 71, creatinine of 2.0. EKG is unremarkable. IMPRESSION: Hemorrhagic cerebrovascular accident. ADDITIONAL DIAGNOSES: 1. Acute renal failure. 2. Other problems listed above. PLAN: The patient has been placed in the ICU. Neurology and Neurosurgery have been consulted. Blood pressure will be maintained 140-160 systolic range. I spoke at length with daughters regarding the situation. Right now as long there is no free bleeding, he seems to be relatively stable at this point in time. MONICA MENDEZ MD DR: MIGUELINA/shalonda JOB#: [id number] / [id number]
== END 2016-11-05 22:10 | disposition expired | DRG 64 ==
LOC: ER 20:16 → 1 WEST ICU 21:45
PROVIDERS: ADMIT Family Medicine; ATTEND Family Medicine
DX: I61.5 Nontraumatic intracerebral hemorrhage, intraventricular (principal); G93.41 Metabolic encephalopathy; N17.9 Acute kidney failure, unspecified; E78.5 Hyperlipidemia, unspecified; F32.9 Major depressive disorder, single episode, unspecified; I10 Essential (primary) hypertension; R29.810 Facial weakness; Z96.643 Presence of artificial hip joint, bilateral; F41.9 Anxiety disorder, unspecified; Z95.0 Presence of cardiac pacemaker; Z88.6 Allergy status to analgesic agent; Z91.048 Other nonmedicinal substance allergy status; Z90.89 Acquired absence of other organs
CPT/HCPCS: 36415; 70450; 71010; 80048; 80053; 81001; 82140; 82553; 82947; 83735; 83880; 84100; 84484; 85007; 85027; 85610; 85730; 87641; 93005; 96361; 96365; C9254; G0481; J3480; J7030; J7050; 92610; 99291-25